=== PATIENT | male | born 1985 | race African-American/Black ===

== ENCOUNTER 2020-06-02 15:39 | Emergency (ER) | payer SELFPAY ==
--- NOTE | 2020-06-02 16:18 | EDM.PDOC ---
ED HPI GENERAL MEDICAL PROBLEM - General Chief Complaint: General Stated Complaint: MERCER, DIZZINESS, MALAISE Time Seen by Provider: 06/02/20 15:55 Source of Information: Reports: Patient - History of Present Illness INITIAL COMMENTS - FREE TEXT/NARRATIVE: Pt with MERCER and malaise for past several days No fever NO cough Does work at [employer] and may have been exposed to Covid there Forehead Pain Score (Numeric/FACES): 5 - Related Data Allergies Allergy/AdvReac Type Severity Reaction Status Date / Time No Known Allergies Allergy Verified 06/02/20 15:47 Home Meds: Home Meds . [No Known Home Meds] 06/02/20 [History] ED ROS GENERAL - Review of Systems Review Of Systems: See Below Constitutional: Reports: Malaise, Fatigue HEENT: Reports: No Symptoms Respiratory: Reports: No Symptoms Cardiovascular: Reports: No Symptoms GI/Abdominal: Reports: No Symptoms ED EXAM, GENERAL - Physical Exam Exam: See Below Exam Limited By: No Limitations General Appearance: Alert, WD/WN, No Apparent Distress Ears: Normal External Exam Nose: Normal Inspection Throat/Mouth: Normal Oropharynx Neck: Supple Respiratory/Chest: Lungs Clear Cardiovascular: Regular Rate, Rhythm GI/Abdominal: Soft, Non-Tender Extremities: Normal Inspection Course - Vital Signs Last Recorded V/S: Last Vital Signs Temp 98.3 F 06/02/20 15:39 Pulse 87 06/02/20 15:39 Resp 16 06/02/20 15:39 BP 140/83 06/02/20 15:39 Pulse Ox 99 06/02/20 15:39 - Orders/Labs/Meds Orders: Active Orders 24 hr Category Date Time Status CORONAVIRUS COVID-19 AIDA [[facility]] Stat Lab 06/02/20 15:52 Ordered Labs: Laboratory Tests 06/02/20 Range/Units 16:00 WBC 5.5 (4.0-10.2) K/uL RBC 6.35 H (4.33-5.41) M/uL Hgb 14.1 (13.1-16.8) g/dL Hct 43.8 (39.0-49.0) % MCV 69.0 L (84.0-98.0) fL MCH 22.2 L (28.2-33.3) pg MCHC 32.2 (31.7-36.0) g/dL RDW 17.2 H (11.2-14.1) % Plt Count 161 (150-350) K/uL Neut % (Auto) 42.4 L (45.0-80.0) % Lymph % (Auto) 46.4 (10.0-50.0) % [place] % (Auto) 10.1 (2.0-14.0) % Eos % (Auto) 0.9 (0.0-5.0) % Baso % (Auto) 0.2 (0.0-2.0) % Neut # (Auto) 2.34 (1.40-7.00) K/uL Lymph # (Auto) 2.56 (0.50-3.50) K/uL [place] # (Auto) 0.56 (0.00-1.00) K/uL Eos # (Auto) 0.05 (0.00-0.50) K/uL Baso # (Auto) 0.01 (0.00-0.20) K/uL - Re-Assessments/Exams Free Text/Narrative Re-Assessment/Exam: 06/02/20 16:15 Covid pending Departure - Departure Time of Disposition: 16:15 Disposition: Home, Self-Care 01 Clinical Impression: Exposure to COVID-19 virus - Discharge Information *PRESCRIPTION DRUG MONITORING PROGRAM REVIEWED*: Not Applicable *COPY OF PRESCRIPTION DRUG MONITORING REPORT IN PATIENT PATSY: Not Applicable Referrals: PCP,None [Primary Care Provider] - Additional Instructions: Await Covid testing Sepsis Event Note (ED) - Evaluation Sepsis Screening Result: No Definite Risk - Focused Exam Vital Signs: Vital Signs Temp Pulse Resp BP Pulse Ox 06/02/20 15:39 98.3 F 87 16 140/83 99 - My Orders Last 24 Hours: My Active Orders 06/02/20 15:52 CORONAVIRUS COVID-19 AIDA [[facility]] Stat - Assessment/Plan Last 24 Hours: My Active Orders 06/02/20 15:52 CORONAVIRUS COVID-19 AIDA [[facility]] Stat
== END 2020-06-02 17:10 | disposition home or self-care (01) ==
LOC: LL.ED 15:39
DX: R51.9 Headache, unspecified (principal); R53.81 Other malaise; R42 Dizziness and giddiness; R53.83 Other fatigue; Z20.828 Contact with and (suspected) exposure to other viral communicable diseases
CPT/HCPCS: 36415; 85025; 99282; 99284; U0002